=== PATIENT | female | born 1985 | race Caucasian/White ===

== ENCOUNTER → 2022-01-13 | Outpatient (CLI) | payer OTHER | LOC: KOH-I 10:32 | DX: M79.672 Pain in left foot (principal); M25.872 Other specified joint disorders, left ankle and foot | CPT/HCPCS: 73630 ==

== ENCOUNTER → 2022-01-27 | Outpatient (CLI) | payer OTHER | LOC: EMI 14:30 | DX: R22.42 Localized swelling, mass and lump, left lower limb (principal); M79.672 Pain in left foot | CPT/HCPCS: 73720; A9577 ==

== ENCOUNTER → 2022-03-04 | Outpatient (CLI) | payer OTHER ==
[~2022-03-04] MED LIST: CYMBALTA30 MG PO; VOLTAREN ARTHRI20 GM TOP; WELLBUTRIN SR150 MG PO; ZOFRAN 4 MG TAB4 MG SL
[2022-03-04 14:05] LABS: HEMOGLOBIN 13.5 gm/dl (12.3-15.3); RED BLOOD COUNT 4.8 M/UL (4.00-5.10); WHITE BLOOD COUNT 10.2 K/UL (4.5-11.0)
[2022-03-04 14:29] LABS: BUN/CREATININE RATIO 10 (0-10)
== END ==
LOC: OPSV2 12:30
PROVIDERS: Podiatrist Foot & Ankle Surgery
DX: Z01.812 Encounter for preprocedural laboratory examination (principal); R22.42 Localized swelling, mass and lump, left lower limb
CPT/HCPCS: 36415; 80048; 85027

== ENCOUNTER → 2022-03-06 | Day surgery (SDC) | payer OTHER ==
[~2022-03-06] VITALS: Ht 172.7 cm; Wt 89.8 kg
== END | disposition home or self-care (01) ==
LOC: OR 05:55
DX: G57.82 Other specified mononeuropathies of left lower limb (principal); R22.42 Localized swelling, mass and lump, left lower limb; L72.0 Epidermal cyst; E78.5 Hyperlipidemia, unspecified; F17.210 Nicotine dependence, cigarettes, uncomplicated; F41.9 Anxiety disorder, unspecified; F32.A Depression, unspecified; Z79.899 Other long term (current) drug therapy
CPT/HCPCS: 84703; J0690; J1100; J1885; J2001; J2250; J2405; J2704; J2795; J3010; J3370; Q4133